=== PATIENT | male | born 1990 | race Caucasian/White ===

== ENCOUNTER 2017-02-20 22:02 | Emergency (ER) | payer MEDICAID ==
[2017-02-20 23:51] VITALS: BP 137/74
== END 2017-02-20 23:51 | disposition home or self-care (01) ==
LOC: ED 22:02
DX: L02.32 Furuncle of buttock (principal); Z88.0 Allergy status to penicillin
CPT/HCPCS: J0690; J2001

== ENCOUNTER 2017-02-24 07:34 | Emergency (ER) | payer MEDICAID ==
[2017-02-24 08:35] VITALS: BP 117/48
== END 2017-02-24 08:35 | disposition home or self-care (01) ==
LOC: ED 07:34
DX: L03.317 Cellulitis of buttock (principal)